=== PATIENT | male | born 1955 | race Two or more races ===

== ENCOUNTER 2016-12-22 19:38 | Emergency (ER) | payer OTHER ==
[~2016-12-22] VITALS: Ht 167.6 cm; Wt 97.1 kg
[2016-12-22] MEDS ORDERED: PHENYLEPHRINE NASAL 1%, 15ML SPRAY ONE (20:25)
[2016-12-22 20:50] VITALS: BP 163/91
== END 2016-12-22 20:52 | disposition home or self-care (01) ==
LOC: ED 20:45
DX: R04.0 Epistaxis (principal); I10 Essential (primary) hypertension
CPT/HCPCS: 99281

== ENCOUNTER 2018-08-21 17:32 | Emergency (ER) | payer MEDICAID, OTHER ==
[~2018-08-21] VITALS: Ht 167.6 cm; Wt 93.6 kg
--- NOTE | 2018-08-21 18:12 | NUR ---
DR DESHPANDE AT BEDSIDE
[2018-08-21 18:15] VITALS: BP 143/87
--- NOTE | 2018-08-21 18:33 | NUR ---
PT TO XRAY
[2018-08-21] MEDS ORDERED: HYDROcodone/APAP 5/325 TABLET ONE (19:28)
[2018-08-21] MEDS ORDERED: HYDROcodone/APAP 5/325 TABLET PO ONE (19:30)
== END 2018-08-21 19:46 | disposition home or self-care (01) ==
LOC: ED 19:15
DX: M54.2 Cervicalgia (principal); M54.6 Pain in thoracic spine; I10 Essential (primary) hypertension; E11.9 Type 2 diabetes mellitus without complications; I25.2 Old myocardial infarction; V49.49XA Driver injured in collision with other motor vehicles in traffic accident, initial encounter; Y93.I9 Activity, other involving external motion; Y92.488 Other paved roadways as the place of occurrence of the external cause; Y99.8 Other external cause status
CPT/HCPCS: 72072; 72110; 72125; 93005; 99284